=== PATIENT | male | born 1960 | race African-American/Black ===

== ENCOUNTER 2017-05-20 05:47 | Emergency (ER) | payer MEDICAID ==
[2017-05-20 05:57] VITALS: BP 147/84; BMI 20.9
--- NOTE | 2017-05-20 06:26 | DR.GENAD ---
HPI - PCP Primary Care Physician: KEVAN - HPI Comment HPI Comment: HISTORY DJD. GETTING WORSE. NO INJURY. - Complaint/Symptoms Chief Complaint Doctors Comments: NECK AND UPPER BACK PAIN TIMES SEVERAL DAYS. Chief Complaint:: "HURTING BAD IN MY BACK LEGS GOING NUMB AND FEELS LIKE SOMEBODY STABBING ME." - Nurses notes reviewed Nurses Notes Review: Yes - Source History Provided: Patient - Mode of Arrival Mode of Arrival: Ambulatory - Timing Onset of Chief Complaint: 05/13/17 Came on: Suddenly - Duration Duration: Intermittent Duration: Days - Severity Severity: Moderate PMH - PMH Past Medical History: Yes Past Medical History: Anxiety, Hypertension, Schizophrenia Past Surgical History: Yes Surgical History: Ortho Surgery Past Surgical History Comment: BACK SURGERY 2008 - Family History History of Family Medical Conditions: Yes Family Medical History: Diabetes Mellitus - Social History Type of Tobacco Use: Cigarettes Alcohol Use: Occasionally Do you use any recreational Drugs:: No Lives Where: Home - infectious screening Have you traveled outside the country in the last 6 months?: No ROS - Review of Systems Constitutional: No Symptoms Reported Eyes: No Symptoms Reported ENTM: No Symptoms Reported Respiratoy: No Symptoms Reported Cardiovascular: No Symptoms Reported Gastrointestinal/Abdominal: No Symptoms Reported Genitourinary: No Symptoms Reported Neurological: No Symptoms Reported Musculoskeletal: Back Pain (UPPER BACK), Neck Pain Integumentary: No Symptoms Reported Hematologic/Lymphatic: No Symptoms Reported Endocrine: No Symptoms Reported All Other Systems: Reviewed and Negative PE - Vital Signs Vitals: Temperature 98.1 F Pulse Rate 65 Respiratory Rate 18 Blood Pressure 147/84 O2 Sat by Pulse Oximetry 100 - General Limitations: No Limitations General Appearance: Alert - Head Head Exam: Normal Inspection - Eyes Eye exam: Normal Appearance - ENT ENT Exam: Normal External Ear Exam External Ear Exam: Normal External Inspection TM/Canal Exam: Bilateral Normal Nose Exam: Normal Nose Exam Mouth Exam: Normal Inspection Throat Exam: Normal Inspection - Neck Neck Exam: Trachea Midline - Chest Chest Inspection: Symmetric Chest Wall Rise - Respiratory Respiratory Exam: Normal Lung Sounds Bilat Respiratory Exam: Bilateral Clear to Auscultation - Cardiovascular Cardiovascular Exam: Regular Rate, Normal Rhythm, Normal Heart Sounds - Abdominal Exam Abdominal Exam: Normal Bowel Sounds, Soft - Extremities Extremities Exam: Normal Inspection - Back Back Exam: Paraspinal Tenderness, Vertebral Tenderness (LOWER NECK AND UPPER BACK TENDERNESS AND TENSE PARAVERTIBRAL MUSCLES) - Neurologic Neurological Exam: Alert, Oriented X3 - Psychiatric Psychiatric Exam: Normal Affect, Normal Mood - Skin Skin Exam: Normal Color MDM - Differential Diagnosis Differential Diagnosis: CHRONIC BACK PAIN/ACUTE EXACERBATION, MUSCULOSKELETAL PAIN. Course - Treatment Treatment: SEE ORDERS - Reevaluation 1st: Improved (IM TORADOL AND NORFLEX. PAIN IMPROVING.) - Education/Counseling Education/Counseling: Patient, Education Educated On: Diagnosis, Needs for Follow Up - Diagnosis Discharge Problem: Neck pain Back pain Qualifiers: Back pain location: thoracic back pain Chronicity: chronic Back pain laterality : bilateral Qualified Code(s): M54.6 - Pain in thoracic spine - Discharge Plan Disposition: HOME, SELF-CARE Condition: Stable Prescriptions: Acetaminophen with Codeine [Tylenol/Codeine #3 300-30 mg] 1 tab PO Q6H PRN #15 tab PRN Reason: Pain Cyclobenzaprine HCl [FLEXERIL 10 MG *] 10 mg PO TID #20 tab Dexamethasone [Decadron Tab] 4 mg PO QAM #10 tab - Follow ups/Referrals Follow ups/Referrals: NFD,None [Primary Care Provider] - 3 days Chandan Shepherd [STAFF PHYSICIAN] - 3 days TERESA QUINTANA [STAFF PHYSICIAN] - 3 days - Instructions Instructions: Musculoskeletal Pain Additional Instructions: RETURN TO ED IF WORSE.
[2017-05-20] MEDS ORDERED: NORFLEX INJ ONE (06:30)
[2017-05-20] MEDS ORDERED: TORADOL 60 MG VIAL ONE (06:30)
[2017-05-20] MEDS ORDERED: TORADOL 60 MG VIAL IM ONE (06:36)
[2017-05-20] MEDS ORDERED: NORFLEX INJ IM ONE (06:36)
== END 2017-05-20 06:58 | disposition home or self-care (01) ==
LOC: ER 05:47
DX: M54.2 Cervicalgia (principal); M54.6 Pain in thoracic spine
CPT/HCPCS: 96372; 99282; J1885; J2360

== ENCOUNTER 2017-06-06 10:46 | Emergency (ER) | payer MEDICAID ==
[2017-06-06 10:46] VITALS: BP 147/84
[2017-06-06 10:53] VITALS: BMI 20.9
--- NOTE | 2017-06-06 11:31 | DR.GENAD ---
HPI - PCP Primary Care Physician: none - HPI Comment HPI Comment: PATIENT CANNOT LIFT HIS SHOULDER UP SINCE INJURY. - Complaint/Symptoms Chief Complaint Doctors Comments: RIGHT SHOULDER PAIN SUSTAIN WHEN PATIENTS SHOULDER WAS PULL FEW HOURS AGO. Chief Complaint:: right arm pain after someone pulled on it - Nurses notes reviewed Nurses Notes Review: Yes - Source History Provided: Patient - Mode of Arrival Mode of Arrival: Ambulatory - Timing Onset of Chief Complaint: 06/06/17 Came on: Suddenly - Duration Duration: Since Onset Duration: Hours - Severity Severity: Moderate PMH - PMH Past Medical History: Yes Past Medical History: Anxiety, Hypertension, Schizophrenia Past Surgical History: Yes Surgical History: Ortho Surgery - Family History History of Family Medical Conditions: Yes Family Medical History: Diabetes Mellitus - Social History Does patient currently use any type of tobacco product: Yes Have you used tobacco products in the last 12 months: Yes Type of Tobacco Use: Cigarettes How many years tobacco product used: 40 Does any household member use tobacco: No Alcohol Use: None Do you use any recreational Drugs:: No Lives With: Family Lives Where: Home - infectious screening In the last 2 months have you had wt loss of >10#?: NO Have you had fever, night sweats or hemotysis?: No Have you traveled outside the country in the last 6 months?: No Isolation: Standard ROS - Review of Systems Constitutional: No Symptoms Reported Eyes: No Symptoms Reported ENTM: No Symptoms Reported Respiratoy: No Symptoms Reported Cardiovascular: No Symptoms Reported Gastrointestinal/Abdominal: No Symptoms Reported Genitourinary: No Symptoms Reported Neurological: No Symptoms Reported Musculoskeletal: Right, Shoulder Integumentary: No Symptoms Reported Hematologic/Lymphatic: No Symptoms Reported Endocrine: No Symptoms Reported All Other Systems: Reviewed and Negative PE - Vital Signs Vitals: Temperature 99 F Pulse Rate 90 Respiratory Rate 18 Blood Pressure 147/84 O2 Sat by Pulse Oximetry 100 - General Limitations: No Limitations General Appearance: Alert - Head Head Exam: Normal Inspection - Eyes Eye exam: Normal Appearance - ENT ENT Exam: Normal External Ear Exam External Ear Exam: Normal External Inspection - Neck Neck Exam: Trachea Midline - Chest Chest Inspection: Symmetric Chest Wall Rise - Respiratory Respiratory Exam: Normal Lung Sounds Bilat Respiratory Exam: Bilateral Clear to Auscultation - Cardiovascular Cardiovascular Exam: Regular Rate, Normal Rhythm, Normal Heart Sounds - Abdominal Exam Abdominal Exam: Normal Inspection - Extremities Extremities Exam: Tenderness (RT SHOULDER TENDER.). negative: Full ROM ( DECREASE ROM RT SHOULDER.) - Back Back Exam: Normal Inspection - Neurologic Neurological Exam: Alert, Oriented X3 - Psychiatric Psychiatric Exam: Normal Affect, Normal Mood - Skin Skin Exam: Normal Color MDM - Differential Diagnosis Differential Diagnosis: RIGHT SHOULDER SPRAIN, FRACTURE OR DISLOCATION. Course - Treatment Treatment: SEE ORDERS. IM TORADOL IN ED. PAIN DECREASING. - Reevaluation 1st: Improved - Education/Counseling Education/Counseling: Patient, Education Educated On: Treatment, Diagnosis, Needs for Follow Up ROR - XRAY XRAY Interpreted by: Radiologist XRAY Findings: REPORT DISCUSS WITH PATIENT. - Diagnosis Discharge Problem: Sprain of right shoulder Qualifiers: Encounter type: initial encounter Shoulder sprain type: unspecified sprain Qualified Code(s): S43.401A - Unspecified sprain of right shoulder joint, initial encounter - Discharge Plan Disposition: 01 HOME, SELF-CARE Condition: Stable Prescriptions: Tramadol HCl 50 mg PO Q8H PRN #15 tablet PRN Reason: - Follow ups/Referrals Follow ups/Referrals: NFD,None [Primary Care Provider] - 3 days Chandan Shepherd [STAFF PHYSICIAN] - 3 days - Instructions Instructions: Shoulder Sprain, Shoulder Pain, [id number] Additional Instructions: RETURN TO ED IF WORSE.
[2017-06-06] MEDS ORDERED: TORADOL 60 MG VIAL IM ONE (11:33)
[2017-06-06] MEDS ORDERED: TORADOL 60 MG VIAL ONE (11:37)
--- NOTE | 2017-06-06 12:54 | RAD ---
Right shoulder, three views Indication: Right shoulder pain with trauma Comparison: None Findings: No acute fracture or subluxation is identified. There are moderate degenerative changes of the AC joint. The glenohumeral joint is well maintained. The acromiohumeral interval is within norm al limits. There is no gross soft tissue injury. Impression: No acute osseous abnormality. Mild AC joint DJD. Reported By:
== END 2017-06-06 12:56 | disposition home or self-care (01) ==
LOC: ER 10:56
DX: S43.401A Unspecified sprain of right shoulder joint, initial encounter (principal); Y33.XXXA Other specified events, undetermined intent, initial encounter; Y92.9 Unspecified place or not applicable
CPT/HCPCS: 73030; 96372; 99282; 99283; J1885

== ENCOUNTER 2017-06-07 06:49 | Emergency (ER) | payer MEDICAID ==
[2017-06-07 06:54] VITALS: BP 135/76; BMI 20.9
[2017-06-07] MEDS ORDERED: NORFLEX INJ IM ONE (07:07)
[2017-06-07] MEDS ORDERED: TORADOL 60 MG VIAL IM ONE (07:07)
--- NOTE | 2017-06-07 07:07 | DR.GENAD ---
HPI - PCP Primary Care Physician: adriane - HPI Comment HPI Comment: PAIN INCREASING. MED GIVEN YESTERDAY NOT RELIEVING PAIN. - Complaint/Symptoms Chief Complaint Doctors Comments: PAIN RIGHT SHOULDER TIMES ONE DAY. Chief Complaint:: patient stated he was seen yesterday for the same thing. last night he could not sleep. patient stated he got his rx filled but it does not help the pain. - Nurses notes reviewed Nurses Notes Review: Yes - Source History Provided: Patient - Mode of Arrival Mode of Arrival: Ambulatory - Timing Onset of Chief Complaint: 06/06/17 Came on: Suddenly - Duration Duration: Constant Duration: Days - Severity Severity: Moderate PMH - PMH Past Medical History: Yes Past Medical History: Anxiety, Hypertension, Schizophrenia Past Surgical History: Yes Surgical History: Ortho Surgery - Family History History of Family Medical Conditions: Yes Family Medical History: Diabetes Mellitus - Social History Does patient currently use any type of tobacco product: Yes Have you used tobacco products in the last 12 months: Yes Type of Tobacco Use: Cigarettes How many years tobacco product used: 40 Does any household member use tobacco: No Alcohol Use: None Do you use any recreational Drugs:: No Lives With: Family Lives Where: Home - infectious screening In the last 2 months have you had wt loss of >10#?: NO Have you had fever, night sweats or hemotysis?: No Have you traveled outside the country in the last 6 months?: No Isolation: Standard ROS - Review of Systems Constitutional: No Symptoms Reported Eyes: No Symptoms Reported ENTM: No Symptoms Reported Respiratoy: No Symptoms Reported Cardiovascular: No Symptoms Reported Gastrointestinal/Abdominal: No Symptoms Reported Genitourinary: No Symptoms Reported Neurological: No Symptoms Reported Musculoskeletal: Right, Shoulder Integumentary: No Symptoms Reported Hematologic/Lymphatic: No Symptoms Reported Endocrine: No Symptoms Reported All Other Systems: Reviewed and Negative PE - Vital Signs Vitals: Temperature 98.7 F Pulse Rate 63 Respiratory Rate 16 Blood Pressure 135/76 O2 Sat by Pulse Oximetry 100 - General Limitations: No Limitations General Appearance: Alert - Head Head Exam: Normal Inspection - Eyes Eye exam: Normal Appearance - ENT ENT Exam: Normal External Ear Exam External Ear Exam: Normal External Inspection Nose Exam: Normal Nose Exam Mouth Exam: Normal Inspection Throat Exam: Normal Inspection - Neck Neck Exam: Trachea Midline - Chest Chest Inspection: Symmetric Chest Wall Rise - Respiratory Respiratory Exam: Chest Wall Tenderness (RIGHT CLAVICLE AND SCAPULA) Respiratory Exam: Bilateral Clear to Auscultation - Cardiovascular Cardiovascular Exam: Regular Rate, Normal Rhythm, Normal Heart Sounds - Abdominal Exam Abdominal Exam: Normal Bowel Sounds, Soft. negative: Tenderness - Extremities Extremities Exam: Tenderness (TENDERNESS RIGHT SHOULDER.). negative: Full ROM ( DECREASE ROM.) - Back Back Exam: Normal Inspection - Neurologic Neurological Exam: Alert, Oriented X3 - Psychiatric Psychiatric Exam: Normal Affect, Normal Mood - Skin Skin Exam: Normal Color MDM - Differential Diagnosis Differential Diagnosis: TIGHT SHOULDER PAIN AND SPRAIN Course - Treatment Treatment: SEE ORDERS. IM PAIN MED IN ED. PAIN DECREASING. - Education/Counseling Education/Counseling: Patient, Education Educated On: Treatment, Diagnosis, Needs for Follow Up ROR - XRAY XRAY Findings: XRAY REPORT DONE YESTERDAY RIGHT SHOULDER REVIEWED. REPORTED NORMAL. - Diagnosis Discharge Problem: Sprain of shoulder, right Qualifiers: Encounter type: initial encounter Shoulder sprain type: unspecified sprain Qualified Code(s): S43.401A - Unspecified sprain of right shoulder joint, initial encounter Shoulder pain, right Qualifiers: Chronicity: acute Qualified Code(s): M25.511 - Pain in right shoulder - Discharge Plan Disposition: HOME, SELF-CARE Condition: Stable Prescriptions: Cyclobenzaprine HCl [FLEXERIL 10 MG *] 10 mg PO TID #15 tab Ketorolac Tromethamine [Toradol Tab] 10 mg PO Q8H PRN #15 tab PRN Reason: Pain - Follow ups/Referrals Follow ups/Referrals: NFD,None [Primary Care Provider] - 3 days ALYCE MANDEL [STAFF PHYSICIAN] - 1 day Chandan Shepherd [STAFF PHYSICIAN] - 1 day - Instructions Instructions: Shoulder Pain, [id number], Shoulder Sprain Additional Instructions: RETURN TO ED IF WORSE.
[2017-06-07] MEDS ORDERED: TORADOL 60 MG VIAL ONE (07:15)
[2017-06-07] MEDS ORDERED: NORFLEX INJ ONE (07:16)
== END 2017-06-07 08:06 | disposition home or self-care (01) ==
LOC: ER 06:49
DX: S43.401A Unspecified sprain of right shoulder joint, initial encounter (principal); M25.511 Pain in right shoulder; Y33.XXXA Other specified events, undetermined intent, initial encounter; Y92.9 Unspecified place or not applicable
CPT/HCPCS: 96372; 99282; 99283; J1885; J2360

== ENCOUNTER → 2017-07-05 | Outpatient (CLI) | payer MEDICAID ==
[2017-06-07 06:54] VITALS: BP 135/76
== END ==
LOC: RT 12:36
PROVIDERS: ATTEND Psychiatry & Neurology Neurology
DX: R20.2 Paresthesia of skin (principal)
CPT/HCPCS: 95911

== ENCOUNTER → 2017-08-11 | Outpatient (CLI) | payer OTHER, MEDICAID ==
--- NOTE | 2017-08-15 09:27 | MRI ---
HISTORY: Shoulder pain. NONCONTRAST MRI EXAM OF THE RIGHT SHOULDER Technique: Multiplanar and multisequence MR examination of the shoulder is performed at 1.5 Lauren wit hout the use of IV contrast. Findings: Rotator cuff: The subscapularis is intact. No medial displacement of the biceps tendon is seen. The re is tendinosis of the posterior supraspinatus, distally, at the footplate. Also seen is tendinosis of the anterior infraspinatus at the footplate without full-thickness rotator cuff tear seen. No foca l rotator cuff tear or rotator cuff atrophy is seen. The teres minor is intact. Increased T2 signal c hange and linear fluid is seen in the subacromial & subdeltoid bursa, compatible with mild subacromia l & subdeltoid bursitis. Intra-articular biceps: No injury, tear, or displacement observed. Glenoid labrum: Abnormal signal in the superior labrum which most likely reflects a nondisplaced an d degenerative superior labral tear without evidence for labral cyst formation. No other labral or pa ralabral abnormalities are identified Acromioclavicular joint: There is no evidence for AC joint separation or associated AC joint injury , however. Moderate AC joint DJD with a type 2 acromion. Glenohumeral joint: No joint effusion, focal joint erosion, or loose body seen. Bone marrow: Focal bone marrow edema seen in the medial humeral head with adjacent grade 2 chondrom alacia of the shoulder joint which probably accounts for this patient's pain, in keeping with moderat e osteoarthritis/chondromalacia of the shoulder joint. Other: No concerning or infiltrative soft tissues masses are seen. IMPRESSION: 1. [id number] tendinosis of the rotator cuff conjoined tendon, distally. 2. No full-thickness rotator cuff tear or rotator cuff atrophy is seen. 3. MR findings suggesting a nondisplaced, likely degenerative, superior labral tear 4. Mild subacromial & subdeltoid bursitis and inflammation. 5. Focal bone marrow edema seen in the medial humeral head with adjacent grade 2 chondromalacia of the shoulder joint which probably accounts for this patient's pain, in keeping with moderate osteoart hritis/chondromalacia of the shoulder joint. 6. Moderate AC joint osteoarthritis with a type 2 downsloping acromion. Reported By:
== END | disposition home or self-care (01) ==
LOC: RAD 15:32
PROVIDERS: ATTEND Orthopaedic Surgery
DX: M75.41 Impingement syndrome of right shoulder (principal); M75.51 Bursitis of right shoulder; M94.211 Chondromalacia, right shoulder; M19.011 Primary osteoarthritis, right shoulder; M75.81 Other shoulder lesions, right shoulder
CPT/HCPCS: 73221

== ENCOUNTER 2017-12-30 08:21 | Emergency (ER) | payer MEDICAID, OTHER ==
[2017-12-30 08:29] VITALS: BP 134/67; BMI 20.7
--- NOTE | 2017-12-30 08:44 | DR.GENAD ---
HPI - PCP Primary Care Physician: NFD - HPI Comment HPI Comment: PATIENT IS WEAK, LOOSING WEIGHT AND COUGHING BLOOD. - Complaint/Symptoms Chief Complaint Doctors Comments: FEVER, COUGH, CONGESTION AND BODYACHES WITH ANOREXIA TIMES 5 DAYS. Chief Complaint:: PT C/O STRONG SMELLING URINE, BODY ACHES, COUGHING UP BLOOD, WEAKNESS, ON AND OFF FEVER, HIS EYES HURT AND 8 LPB WEIGHT LOSS. PT STATES HE HAS NOT BEEN ABLE TO EAT ANYTHING.HE ALSO HAS BEEN HAVING THESE PAINS FOR THE PAST FEW DAYS. - Nurses notes reviewed Nurses Notes Review: Yes - Source History Provided: Patient - Mode of Arrival Mode of Arrival: Ambulatory - Timing Onset of Chief Complaint: 12/26/17 Came on: Suddenly - Duration Duration: Constant Duration: Days - Severity Severity: Moderate PMH - PMH Past Medical History: Yes Past Medical History: Anxiety, Hypertension, Schizophrenia Past Surgical History: Yes Surgical History: Ortho Surgery - Family History History of Family Medical Conditions: Yes Family Medical History: Diabetes Mellitus - Social History Does patient currently use any type of tobacco product: Yes Have you used tobacco products in the last 12 months: Yes Type of Tobacco Use: Cigarettes Does any household member use tobacco: Yes Alcohol Use: Occasionally Do you use any recreational Drugs:: No Lives With: Spouse, Family Lives Where: Home - infectious screening In the last 2 months have you had wt loss of >10#?: YES Have you had fever, night sweats or hemotysis?: Yes Have you traveled outside the country in the last 6 months?: No Isolation: Standard ROS - Review of Systems Constitutional: Chills, Fever, Weakness, Fatigue, Loss of Appetite. negative: Diaphoresis Eyes: Eye Pain. negative: Discharge ENTM: Ear Pain, Nose Discharge, Nose Congestion, Throat Pain Respiratoy: Productive Cough, Short of Breath, Hemoptysis. negative: Wheezing Cardiovascular: Chest Pain Gastrointestinal/Abdominal: No Symptoms Reported Genitourinary: Other (URINE HAVE FOUL SMELL.) Neurological: Headache, Weakness, Dizziness Musculoskeletal: Joint Pain, Muscle Pain Integumentary: No Symptoms Reported Hematologic/Lymphatic: No Symptoms Reported Endocrine: No Symptoms Reported All Other Systems: Reviewed and Negative PE - Vital Signs Vitals: Temperature 97.6 F Pulse Rate 74 Respiratory Rate 20 Blood Pressure 134/67 O2 Sat by Pulse Oximetry 100 - General Limitations: No Limitations General Appearance: Alert - Head Head Exam: Normal Inspection - Eyes Eye exam: Normal Appearance - ENT ENT Exam: Normal External Ear Exam External Ear Exam: Normal External Inspection TM/Canal Exam: Bilateral Bulging Nose Exam: Normal Nose Exam Mouth Exam: Normal Inspection Throat Exam: Tonsillar Erythema. negative: Tonsillomegaly, Tonsillar Exudate - Neck Neck Exam: Trachea Midline. negative: Tenderness, Meningismus, Lymphadenopathy - Chest Chest Inspection: Symmetric Chest Wall Rise - Respiratory Respiratory Exam: Normal Lung Sounds Bilat Respiratory Exam: Bilateral Clear to Auscultation - Cardiovascular Cardiovascular Exam: Regular Rate, Normal Rhythm, Normal Heart Sounds - Abdominal Exam Abdominal Exam: Normal Bowel Sounds, Soft. negative: Tenderness - Extremities Extremities Exam: Normal Inspection - Back Back Exam: Normal Inspection - Neurologic Neurological Exam: Alert, Oriented X3 - Psychiatric Psychiatric Exam: Anxious - Skin Skin Exam: Normal Color MDM - Differential Diagnosis Differential Diagnosis: PNEUMONIA, BRONCHITIS, INFLUENZA, UTI Course - Treatment Treatment: SEE ORDERS. - Education/Counseling Education/Counseling: Patient, Education Educated On: Diagnosis, Needs for Follow Up ROR - Labs Reviewed Laboratory Results Reviewed?: Yes Result Diagrams: 12/30/17 09:06 12/30/17 09:06 Laboratory: WBC 5.8 X10^3/uL (3.6-10.0) 12/30/17 09:06 RBC 4.48 X10^6/uL (4.7-6.0) L 12/30/17 09:06 Hgb 12.8 g/dL (13.5-18.0) L 12/30/17 09:06 Hct 38.3 % (42.0-54.0) L 12/30/17 09:06 MCV 85.6 fL (80.0-100.0) 12/30/17 09:06 MCH 28.6 pg (27.0-34.0) 12/30/17 09:06 MCHC 33.4 g/dL (33.0-35.0) 12/30/17 09:06 RDW 16.6 % (11.6-16.5) H 12/30/17 09:06 Plt Count 279 X10^3/uL (150.0-450.0) 12/30/17 09:06 MPV 8.3 fL (7.4-11.0) 12/30/17 09:06 Neut % 60.7 % (42.0-75.0) 12/30/17 09:06 Lymph % 26.0 % (21.0-51.0) 12/30/17 09:06 [place] % 10.4 % (0.0-13.0) 12/30/17 09:06 Eos % 2.0 % (0.9-2.9) 12/30/17 09:06 Baso % 0.9 % (0.2-1.0) 12/30/17 09:06 Neut # 3.5 x10^3/uL (2.2-4.8) 12/30/17 09:06 Lymph # 1.5 X10^3/uL (1.3-2.9) 12/30/17 09:06 [place] # 0.6 x10^3/uL (0.3-0.8) 12/30/17 09:06 Eos # 0.1 x10^3/uL (0.0-0.2) 12/30/17 09:06 Baso # 0.1 X10^3/uL (0.0-0.1) 12/30/17 09:06 Absolute Nucleated RBC 0.1 /100WBC 12/30/17 09:06 Sodium 140 mmol/L (136-145) 12/30/17 09:06 Corrected Sodium TNP 12/30/17 09:06 Potassium 4.2 mmol/L (3.5-5.1) 12/30/17 09:06 Chloride 103 mmol/L (98-107) 12/30/17 09:06 Carbon Dioxide 26.3 mmol/L (21-32) 12/30/17 09:06 BUN 11 mg/dL (7-18) 12/30/17 09:06 Creatinine 1.08 mg/dL (0.70-1.30) 12/30/17 09:06 Est GFR (MDRD) Af Amer > 60 (>60) 12/30/17 09:06 Est GFR (MDRD) Non-Af > 60 (>60) 12/30/17 09:06 Glucose 89 mg/dL (65-99) 12/30/17 09:06 Calcium 8.8 mg/dL (8.5-10.1) 12/30/17 09:06 Corrected Calcium 9.4 mg/dL (8.5-10.1) 12/30/17 09:06 Total Bilirubin 0.20 mg/dL (0.2-1.0) 12/30/17 09:06 AST 15 Units/L (15-37) 12/30/17 09:06 ALT 19 Units/L (12-78) 12/30/17 09:06 Alkaline Phosphatase 74 Units/L (46-116) 12/30/17 09:06 Total Protein 7.6 g/dL (6.4-8.2) 12/30/17 09:06 Albumin 3.3 g/dL (3.4-5.0) L 12/30/17 09:06 Globulin 4.3 g/dL (2.5-4.5) 12/30/17 09:06 Albumin/Globulin Ratio 0.8 Ratio (1.1-2.1) L 12/30/17 09:06 Specimen Type Clean catch urine 12/30/17 09:20 Urine Color Yellow (YELLOW) 12/30/17 09:20 Urine Appearance Slightly hazy (CLEAR) 12/30/17 09:20 Urine pH 5.0 (5.0 - 8.0) 12/30/17 09:20 Ur Specific [place] 1.020 (1.000-1.030) 12/30/17 09:20 Urine Protein Negative (NEGATIVE) 12/30/17 09:20 Urine Glucose (UA) Negative (NEGATIVE) 12/30/17 09:20 Urine Ketones Negative (NEGATIVE) 12/30/17 09:20 Urine Occult Blood 1+ (NEGATIVE) 12/30/17 09:20 Urine Nitrite Negative (NEGATIVE) 12/30/17 09:20 Urine Bilirubin Negative (NEGATIVE) 12/30/17 09:20 Urine Urobilinogen Normal (NORMAL) 12/30/17 09:20 Ur Leukocyte Esterase 1+ (NEGATIVE) 12/30/17 09:20 Urine RBC 3-5 /HPF (NONE SEEN) 12/30/17 09:20 Urine WBC Rare /HPF (NONE SEEN) 12/30/17 09:20 Ur Squamous Epith Cells Rare /HPF (NEGATIVE) 12/30/17 09:20 Amorphous Sediment Trace /HPF (NEGATIVE) 12/30/17 09:20 Urine Bacteria Negative /HPF (NEGATIVE) 12/30/17 09:20 Ur Culture Indicated? No/not indicated 12/30/17 09:20 Influenza Type A (PCR) Negative (NEGATIVE) 12/30/17 09:20 Influenza Type B (PCR) Negative (NEGATIVE) 12/30/17 09:20 - XRAY XRAY Interpreted by: Radiologist XRAY Findings: report discuss with patient. - Diagnosis Discharge Problem: Bronchitis, Hemoptysis - Discharge Plan Disposition: HOME, SELF-CARE Condition: Stable Prescriptions: Amoxicillin [Amoxil 875 mg] 875 mg PO Q12H #20 tab Promethazine W/Codeine [PHENERGAN W/CODEINE 6.25mg/10mg (5mL) *] 5 ml PO Q6H PRN #120 ml PRN Reason: Cough - Follow ups/Referrals Follow ups/Referrals: KEVAN,Aram [Primary Care Provider] - 3 days KEATON GRAHAM [STAFF PHYSICIAN] - 3 days - Instructions Instructions: Smoking Cessation, Tips for Success, [id number], Acute Bronchitis Additional Instructions: return to ed if worse. you also have generalize weakness and coughing blood. you should follow up with allocations clerk doctor in the office for further evaluation as needed.
[2017-12-30 09:20] LABS: BASOPHILS # (AUTO) 0.1 X10^3/uL (0.0-0.1); BASOPHILS % (AUTO) 0.9 % (0.2-1.0); EOSINOPHILS # (AUTO) 0.1 x10^3/uL (0.0-0.2); HEMATOCRIT 38.3 % (42.0-54.0); HEMOGLOBIN 12.8 g/dL (13.5-18.0); LYMPHOCYTES # (AUTO) 1.5 X10^3/uL (1.3-2.9); MEAN CORPUSCULAR HEMOGLOBIN 28.6 pg (27.0-34.0); MEAN CORPUSCULAR HGB CONC 33.4 g/dL (33.0-35.0); MEAN CORPUSCULAR VOLUME 85.6 fL (80.0-100.0); MEAN PLATELET VOLUME 8.3 fL (7.4-11.0); MONOCYTES # (AUTO) 0.6 x10^3/uL (0.3-0.8); MONOCYTES % (AUTO) 10.4 % (0.0-13.0); NEUTROPHILS # (AUTO) 3.5 x10^3/uL (2.2-4.8); NEUTROPHILS % (AUTO) 60.7 % (42.0-75.0); PLATELET COUNT 279 X10^3/uL (150.0-450.0); RED BLOOD COUNT 4.48 X10^6/uL (4.7-6.0); RED CELL DISTRIBUTION WIDTH 16.6 % (11.6-16.5); WHITE BLOOD COUNT 5.8 X10^3/uL (3.6-10.0)
--- NOTE | 2017-12-30 09:26 | RAD ---
HISTORY: Cough, hemoptysis Study: Chest PA and lateral Comparison: None Findings: The heart is within normal limits in size. The [place] are normal. The lungs are well inflated and free of acute infiltrates. No pleural effusions are identified. The bony thorax is unremarkable. IMPRESSION: No significant abnormality identified Reported By:
[2017-12-30 09:30] LABS: ALANINE AMINOTRANSFERASE 19 Units/L (12-78); ALBUMIN 3.3 g/dL (3.4-5.0); ALKALINE PHOSPHATASE 74 Units/L (46-116); ASPARTATE AMINO TRANSFERASE 15 Units/L (15-37); BLOOD UREA NITROGEN 11 mg/dL (7-18); CALCIUM 8.8 mg/dL (8.5-10.1); CARBON DIOXIDE 26.3 mmol/L (21-32); CHLORIDE 103 mmol/L (98-107); COR CA(FOR HYPOALB) 9.4 mg/dL (8.5-10.1); CREATININE 1.08 mg/dL (0.70-1.30); SODIUM 140 mmol/L (136-145); TOTAL PROTEIN 7.6 g/dL (6.4-8.2); eGFR BLACK RACES > 60 (>60); eGFR NON BLACK RACES > 60 (>60)
[2017-12-30 09:38] LABS: BILIRUBIN,URINE NEGATIVE (NEGATIVE); BLOOD/HEMOGLOBIN,URINE 1+ (NEGATIVE); GLUCOSE, URINE NEGATIVE (NEGATIVE); KETONES,URINE NEGATIVE (NEGATIVE); LEUKOCYTE ESTERASE ,URINE 1+ (NEGATIVE); NITRITES,URINE NEGATIVE (NEGATIVE); PROTEIN,URINE NEGATIVE (NEGATIVE); UROBILINOGEN,URINE NORMAL (NORMAL)
[2017-12-30 09:53] LABS: AMORPHOUS SEDIMENT,UR TRACE /HPF (NEGATIVE); APPEARANCE,URINE SLIGHTLY HAZY (CLEAR); BACTERIA,URINE NEGATIVE /HPF (NEGATIVE); COLOR,URINE YELLOW (YELLOW); SQUAMOUS EPITHELIAL CELL,UR RARE /HPF (NEGATIVE)
== END 2017-12-30 10:54 | disposition home or self-care (01) ==
LOC: ER 08:31
DX: J40 Bronchitis, not specified as acute or chronic (principal); R04.2 Hemoptysis
CPT/HCPCS: 36415; 71046; 80053; 81001; 85025; 87502; 99282

== ENCOUNTER → 2018-02-23 | Outpatient (CLI) | payer MEDICAID ==
--- NOTE | 2018-02-23 14:15 | MRI ---
MRI SPINE CERVICAL WITHOUT CONTRAST CLINICAL HISTORY: 57-year-old male with chronic neck pain and left radicular symptoms. COMPARISON: CT cervical spine 12/05/2013. Technique: Multiplanar, multisequence MRI images of the cervical spine were obtained without the adm inistration of intravenous contrast. FINDINGS: Straightening of the cervical lordosis as imaged with subtle kyphotic curvature at the leve l of prior instrumentation. Congenital canal stenosis. Patient is status post ACDF C4-C7 with peak in terbody cage at these levels status post patrick corpectomy C5-C6. There is no evidence of hardware fail ure. Susceptibility artifact precludes complete evaluation of the immediately adjacent structures. Th e craniocervical junction is normal. Vertebral body heights above and below the fusion construct are unremarkable. Mild loss of disc space T1-T2 with the remaining disc heights above and below the fusio n construct unremarkable. Cord signal is normal. The visualized posterior fossa structures are norm al. C2-C3: No central canal or neural foraminal stenosis. C3-C4: Shallow disc osteophyte complex narrows canal 9.2 mm. Uncovertebral facet joint hypertrophy co mbine to produce mild to moderate left and mild right neural foraminal stenosis. C4-C5: Bony bridging narrows canal 9.5 mm. Uncovertebral facet joint hypertrophy combine to produce m ild bilateral neural foraminal stenosis. C5-C6: Bony bridging narrows canal 9.4 mm. Uncovertebral and facet joint hypertrophy combine to produ ce mild right neural foraminal stenosis. C6-C7: Bony bridging with central canal measuring 11.1 mm. Uncovertebral joint hypertrophy with spurr ing produces mild right neural foraminal stenosis C7-T1: No significant central canal or neural foraminal stenosis. Paraspinous soft tissues are unremarkable. IMPRESSION: 1. Multilevel disc degeneration and spondyloarthropathy. 2. Status post ACDF with C4-C7, with patrick corpectomies C5-C6, without evidence of hardware failure. 3. See level by level descriptions above. Reported By:
== END | disposition home or self-care (01) | DRG 552 ==
LOC: RAD 11:58
PROVIDERS: ATTEND Psychiatry & Neurology Neurology
DX: M50.30 Other cervical disc degeneration, unspecified cervical region (principal); M54.12 Radiculopathy, cervical region
CPT/HCPCS: 72141